=== PATIENT | male | born 1985 | race African-American/Black ===

== ENCOUNTER 2017-02-09 15:06 | Emergency (ER) | payer SELFPAY ==
[~2017-02-09] VITALS: Ht 172.7 cm; Wt 74.4 kg
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
--- NOTE | 2017-02-09 15:41 | NUR ---
HEMA SAWYER AT BEDSIDE
--- NOTE | 2017-02-09 15:43 | NUR ---
URINE SAMPLE SENT TO LAB
[2017-02-09 15:51] LABS: APPEARANCE,URINE Slightly Cloudy (CLEAR); BILIRUBIN,URINE Negative (NEGATIVE); BLOOD, URINE Small Ery/uL (NEGATIVE); COLOR,URINE Dark (YELLOW); KETONES,URINE Trace (NEGATIVE); LEUKOCYTE ESTERASE ,URINE Moderate (NEGATIVE); NITRITE, URINE Negative (NEGATIVE); PROTEIN,URINE 100 mg/dl (NEGATIVE); UGLUCOSE Negative (NEGATIVE)
[2017-02-09] MEDS ORDERED: AZITHROMYCIN 250 MG TABLET ONE (15:57)
[2017-02-09] MEDS ORDERED: CEFTRIAXONE 500 MG VIAL ONE (15:57)
[2017-02-09] MEDS ORDERED: LIDOCAINE /MPF 1% VIAL 5 ML VIAL ONE (15:58)
[2017-02-09] MEDS ORDERED: AZITHROMYCIN 250 MG TABLET PO ONE (16:00)
[2017-02-09] MEDS ORDERED: CEFTRIAXONE 500 MG VIAL IM ONE (16:00)
[2017-02-09 16:09] LABS: WBC,URINE 81-100 /HPF (0-3)
[2017-02-09 16:10] LABS: BACTERIA,URINE 2+ /HPF (None Seen); SQUAMOUS EPITHELIAL CELL,UR Rare /HPF (None Seen)
[2017-02-09 16:16] VITALS: BP 132/77
--- NOTE | 2017-02-09 16:17 | NUR ---
Patient discharged to home in stable condition. Written and verbal after care instructions given. Patient verbalizes understanding of instruction.
== END 2017-02-09 16:18 | disposition home or self-care (01) ==
LOC: ER 15:08
DX: A64 Unspecified sexually transmitted disease (principal)
CPT/HCPCS: 81000-TC; 87086-TC; A4606; J0696; J3490; Z7610